=== PATIENT | male | born 1960 | race Caucasian/White ===

== ENCOUNTER 2016-10-29 21:45 | Emergency (ER) | payer BC ==
[2016-10-29 21:52] VITALS: BP 131/89
[2016-10-29] MEDS ORDERED: Naproxen TAB* 250 MG PO ONE (22:00)
[2016-10-29] MEDS ORDERED: Sulfamethox/Trimethoprim DS 800/160* TAB PO ONE (22:00)
--- NOTE | 2016-10-29 22:09 | UC ---
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 handed hx of MRSA - History of Current Complaint Chief Complaint: UCUpperExtremity Stated Complaint: RIGHT ELBOW Time Seen by Provider: 10/29/16 21:53 Hx Obtained From: Patient Mechanism of Injury: no know trauma Onset/Duration: Hours Severity Initially: Mild Severity Currently: Severe Pain Intensity: 9 Pain Scale Used: 0-10 Numeric Location Of Pain: Is Discrete @ - right olecranon Character: Aching Alleviating Factor(s): Rest Associated Signs And Symptoms: Positive: Swelling, Redness - Allergies/Home Medications Allergies/Adverse Reactions: Allergies Allergy/AdvReac Type Severity Reaction Status Date / Time No Known Allergies Allergy Verified 10/29/16 21:52 Home Medications: Home Medications Omeprazole CAP* [Prilosec CAP* 20 MG] 20 mg PO DAILY 10/29/16 [History Confirmed 10/29/16] PMH/Surg Hx/FS Hx/Imm Hx Previously Healthy: Yes - hx MRSA - Surgical History Surgical History: Yes Surgery Procedure, Year, and Place: TWO FINGERS ON RIGHT HAND SEVERED TENDONS AND REPAIRED. LEFT LEG CUT MUSCLE REPAIR. Spinal tap 10/27, loss of left eye vision - Social History Alcohol Use: Daily Substance Use Type: None Smoking Status (MU): Never Smoked Tobacco Type: Cigarettes Have You Smoked in the Last Year: No When Did the Patient Quit Smoking/Using Tobacco: 25 yrs ago Review of Systems Constitutional: Negative Skin: Negative Eyes: Negative ENT: Negative Respiratory: Negative Cardiovascular: Negative Gastrointestinal: Negative Genitourinary: Negative Motor: Negative Neurovascular: Negative Musculoskeletal: Arthralgia, Edema Neurological: Negative Psychological: Negative All Other Systems Reviewed And Are Negative: Yes Physical Exam Triage Information Reviewed: Yes Appearance: Well-Appearing, No Pain Distress, Well-Nourished Vital Signs: Initial Vital Signs Temp 98.4 F 10/29/16 21:47 Pulse 89 10/29/16 21:47 Resp 17 10/29/16 21:47 BP 131/89 10/29/16 21:47 Pulse Ox 97 10/29/16 21:47 Vital Signs Reviewed: Yes ENT: Negative: Hearing grossly normal, Nasal congestion, Nasal drainage, Trismus , Muffled/hoarse voice Neck: Positive: Supple, Nontender Respiratory: Positive: Lungs clear, Normal breath sounds, No respiratory distress Cardiovascular: Positive: RRR, No Murmur Musculoskeletal: Positive: Edema @ - olecranon, Other: - see image Neurological: Positive: Alert Psychological Exam: Normal Skin Exam: Other - see image Elbow Pain Course/Dx - Differential Dx/Diagnosis Provider Diagnoses: right olecranon (?septic) Discharge - Discharge Plan Condition: Stable Disposition: HOME Prescriptions: Naproxen Sodium [Naproxen Sodium 500 MG TAB] 500 mg PO BID PRN #30 tab PRN Reason: Pain Sulfamethox/Trimethoprim DS* [Bactrim DS 800/160 TAB*] 1 tab PO BID #14 tab Patient Education Materials: Elbow Bursitis (ED) Forms: *Work Release Referrals: Linus Ortez MD [Medical Doctor] - 1 Day Images Front/Back of Body, Lg ([place]): 1 - tender/swollen/red over olecranon. not fluctuant. scab near olecranon
== END 2016-10-29 22:09 | disposition home or self-care (01) ==
LOC: UCCORT 21:45
DX: M70.21 Olecranon bursitis, right elbow (principal); Y93.9 Activity, unspecified; Z86.14 Personal history of Methicillin resistant Staphylococcus aureus infection
CPT/HCPCS: 99212; A9270-GY; G0463

== ENCOUNTER 2016-12-20 06:34 | Day surgery (SDC) | payer BC ==
[~2016-12-20 06:34] MED LIST: Buffered Lidocaine 0.9% SYRIN* 5 ML/SYR SYRINGE INTRADERM ONE
[2016-12-20] MEDS ORDERED: ceFAZolin 2 GM PREMIX (*) 50 ML BAG (BBraun bag) IVPB ONE (06:40)
[2016-12-20] MEDS ORDERED: Bupivacaine 0.25% EPI 200,000* 30 ML SDV ONE (07:23)
[2016-12-20] MEDS ORDERED: Bupivacaine 0.25% SDV* 30 ML ONE (07:23)
[2016-12-20] MEDS ORDERED: Midazolam* 1 MG/ML 2 ML VIAL (2 MG) ONE ×2 (07:28→08:04)
[2016-12-20] MEDS ORDERED: fentaNYL* 50 MCG/ML 2 ML VIAL (100 MCG VIAL) ONE (07:28)
[2016-12-20] MEDS ORDERED: Famotidine IV* 10 MG/ML 2 ML (20 mg) ONE (07:36)
[2016-12-20] MEDS ORDERED: Gelfoam 12-7 ADSORBABL SPONGE* 1 EA SPONGE ONE (07:53)
[2016-12-20] MEDS ORDERED: Ketorolac INJ* 30 MG/ML 1 ML VIAL ONE (08:04)
[2016-12-20] MEDS ORDERED: Propofol* 10 MG/ML 20 ML BTL IV PUSH ONE ×2 (08:04→08:39)
[2016-12-20] MEDS ORDERED: Dexamethasone IV* 4 MG/ML 1 ML (4 MG) ONE (08:04)
[2016-12-20] MEDS ORDERED: Lidocaine 2% PF * 5 ML VIAL ONE (08:04)
[2016-12-20] MEDS ORDERED: Labetalol IV* 5 MG/ML 20 ML VIAL ONE (08:38)
[2016-12-20] MEDS ORDERED: HYDROmorphone* 1 MG/ML 1 ML SYR ONE (08:48)
[2016-12-20] MEDS ORDERED: Ondansetron INJ* 2 MG/ML VIAL IV PRN (08:57)
[2016-12-20] MEDS ORDERED: HYDROcodone/ACETAMIN 5-325 MG* 1 TAB PO PRN (08:57)
[2016-12-20] MEDS ORDERED: DiMENhydriNATE IV* 50 MG/ML VIAL IV PUSH PRN (08:57)
[2016-12-20] MEDS ORDERED: PROCHLORPERAZINE INJ 5 MG/ML 2 ML VIAL IV PRN (08:57)
[2016-12-20] MEDS ORDERED: fentaNYL* 50 MCG/ML 2 ML VIAL (100 MCG VIAL) IV PRN (08:57)
[2016-12-20 11:19] VITALS: BP 158/87
--- NOTE | 2016-12-24 13:00 | OP ---
OPERATIVE REPORT: DATE OF OPERATION: 12/20/16 DATE OF : 64 SURGEON: Nabil Edmonds MD PATIENT SAFETY ATTENDANT: EULALIO Cunha An supply assistant was needed for the entirety of the procedure to aid in positioning of the patient, posi tioning of the arm during the surgery and retraction. ANESTHESIOLOGIST: Dr. Silverman. ANESTHESIA: General. PRE-OP DIAGNOSES: 1. Right elbow olecranon bursitis. 2. Right ulnar nerve compression due to cubital tunnel. POST-OP DIAGNOSES: 1. Right elbow olecranon bursitis. 2. Right ulnar nerve compression due to cubital tunnel. PROCEDURES PERFORMED: 1. Right elbow olecranon bursectomy. 2. In situ decompression, right ulnar nerve (cubital tunnel release). INDICATIONS: Asad had significant right elbow olecranon bursitis that was treated initially with Bactrim by my partner, Dr. Ortez, due to concerns for septic olecranon bursitis. It has resolved and he had been left with a more firm collection in the area that is quite painful. He also has a h istory of zone 2 flexor tendon lacerations that were previously repaired and now he has significant flexor tendon adhesions limiting the most of the ring and small fingers. He also has shoulder pain in that arm. I talked to him about excising the bursa, especially given the concern for prior infec tion. He has also told me that he was having pretty significant intermittent numbness and tingling in the small and ring fingers. This was happening pretty much daily. I told them that since we kristie l be in the area and we will be right in the vicinity of the ulnar nerve, that we will plan to decom press the nerve at that time as well. ESTIMATED BLOOD LOSS: 10 mL. COMPLICATIONS: None. FINDINGS: Firm, chronically inflamed olecranon bursa was excised. The right ulnar nerve did show s ignificant flattening and an area of compression right underneath Blackmon's ligament. There was no instability of the ulnar nerve. PROCEDURE: Asad was seen in the preoperative holding area. The correct side, site, and procedu re were identified. We came back to the operating room where anesthesia was induced. He was placed in lateral decubitus position with the arm over a bolster. The arm was prepped and draped in the u sual fashion. A formal timeout was performed. We began by exsanguinating the arm with the Esmarch and the tourniquet was inflated to 250 mmHg. I then made a posteromedial incision over the elbow sufficiently so as to be able to excise the bursa and decompress the nerve. The bursa was from the dermis. I maintained full-thickness ski n flaps while carefully excising the bursa until I excised the entirety of it proximally and distall y, right off the periosteum distally and the triceps fascia proximally. Excision was completed unti l no bursal tissue remained. This was then passed off en bloc as a specimen. I then irrigated out the wound and turned my attention to the ulnar nerve. I began by exposing the nerve just proximal to Blackmon's ligament on the anterior border of the tric eps. I then continued to release proximally, releasing the fascia and a bit of the medial intermusc ular septum. An appendiceal retractor was placed and this allowed for decompression of the nerve u nder direct visualization all the way past the arcade of [place]. I then came distally and releas ed Lbackmon's ligament. Right underneath the Blackmon's ligament, the nerve was very flattened and ki nked and had the appearance of being chronically compressed there. I then continued distally and rel eased the superficial FCU fascia. The two heads of the FCU were split and then a very prominent sub fascial layer was released in its entirety. I then flexed and extended the arm. The ulnar nerve di d not subluxate. I therefore irrigated out the wound. The subcutaneous tissue was reapproximated w ith 3-0 Polysorb sutures. Skin was closed with 3-0 nylon suture. The operative area was infiltrated with 0.25% plain Marcaine. The wound was dressed with Xeroform, 4x4's, and ABD. Then a long arm s plint with the elbow in 30 degrees of flexion was applied. Tourniquet was deflated during the place ment of dressings. The hand pinked up immediately. He was then woken up and taken to the recovery room in stable condition. [id number]/[facility] #: [id number]
== END 2016-12-20 11:36 | disposition home or self-care (01) ==
LOC: OREAST 06:34
PROVIDERS: ATTEND Orthopaedic Surgery Hand Surgery
DX: M70.21 Olecranon bursitis, right elbow (principal); G56.21 Lesion of ulnar nerve, right upper limb; Z87.891 Personal history of nicotine dependence
CPT/HCPCS: 88304; A9270-GY; J0690; J1100; J1170; J1885; J2250; J2704; J3010

== ENCOUNTER → 2017-03-14 10:59 | Day surgery (SDC) | payer BC ==
[~2017-03-14 10:59] MED LIST changes: -Buffered Lidocaine 0.9% SYRIN* 5 ML/SYR SYRINGE INTRADERM ONE; +Buffered Lidocaine 0.9% SYRIN* 5 ML/SYR SYRINGE ONE; +Lidocaine 1% INJ* 10 MG/ML 30 ML SDV ONE; +ceFAZolin 2 GM PREMIX (*) 0 GM/0 ML BAG IVPB ONE
[2017-03-14 11:37] VITALS: BP 115/69
--- NOTE | 2017-03-15 15:24 | OP ---
OPERATIVE REPORT: DATE OF OPERATION: 03/14/17 DATE OF : 64 SURGEON: Nabil Edmonds MD. CORPORATE FITNESS PROGRAM COORDINATOR: None. ANESTHESIOLOGIST: None. ANESTHESIA: Local only with 1% lidocaine. PRE-OP DIAGNOSES: Right posterior elbow small subcutaneous abscess and new onset cellulitis. POST-OP DIAGNOSES: Right posterior elbow small subcutaneous abscess and new onset cellulitis. OPERATIVE PROCEDURE: Incision and drainage of right posterior elbow small subcutaneous abscess. INDICATIONS: Asad was seen for a different scheduled tenolysis surgery. He unfortunately develo ped an infection in the right posterior elbow. There is a small subcutaneous abscess. I told them I thought we should drain it. EBL: 5 mL. COMPLICATIONS: None. FINDINGS: As expected. DESCRIPTION OF PROCEDURE: Asad was seen and preoperatively prior to a different scheduled tenoly sis surgery. He had developed for the last day or two, after a fall on some wedge shell rock, poste rior elbow infection. This morning it was more painful, red, and warm. I had seen him. I told him that unfortunately we need to cancel the surgery, but also that given that he had a small subcutane ous abscess, I thought we had do a small I and D to help the healing along. We went ahead and clean ed the posterior elbow with some ChloraPrep. I then over the area of concern made a 1 cm longitudin al incision broke up any septations in the subcutaneous tissue with the culture swabs. Everything l ooked good. So, I went ahead and sent the cultures off to the lab. We irrigated things out and ari ssed the wound with some 4 x 4's and an Kayode bandage. He tolerated this very well. [id number]/[facility] #: [id number]
== END | disposition home or self-care (01) ==
LOC: OR 10:59
PROVIDERS: ATTEND Orthopaedic Surgery Hand Surgery
DX: L02.413 Cutaneous abscess of right upper limb (principal); L03.113 Cellulitis of right upper limb; I10 Essential (primary) hypertension; K21.9 Gastro-esophageal reflux disease without esophagitis; Z87.891 Personal history of nicotine dependence; M67.843 Other specified disorders of tendon, right hand; S66.10 Unspecified injury of flexor muscle, fascia and tendon of other and unspecified finger at wrist and hand level; X58.XXXS Exposure to other specified factors, sequela; Y92.9 Unspecified place or not applicable
CPT/HCPCS: 87070; 87073; 87205; J0690; J2001

== ENCOUNTER 2017-04-18 12:36 | Day surgery (SDC) | payer BC ==
[2017-04-18] MEDS ORDERED: ceFAZolin 2 GM PREMIX (*) 2 GM/50 ML BAG IVPB ONE (13:25)
[2017-04-18] MEDS ORDERED: Lidocaine 2% W/EPI 1:100,000* 20 ML MDV ONE (13:48)
[2017-04-18] MEDS ORDERED: Sodium Bicarbonate 8.4% IV* 50 ML VIAL ONE (13:48)
[2017-04-18] MEDS ORDERED: Bupivacaine 0.25% SDV* 30 ML ONE ×2 (15:41→19:45)
[2017-04-18] MEDS ORDERED: Lidocaine 1% MPF wEPI 200,000* 30 ML SDV ONE (16:38)
[2017-04-18 20:00] VITALS: BP 130/67
[2017-04-18] MEDS ORDERED: Ibuprofen TAB* 600 MG ONE (20:02)
[2017-04-18] MEDS ORDERED: HYDROcodone/ACETAMIN 5-325 MG* 1 TAB ONE (20:02)
--- NOTE | 2017-04-29 17:44 | OP ---
OPERATIVE REPORT: DATE OF OPERATION: 04/18/17 DATE OF : 64 SURGEON: Nabil Edmonds MD CRACKER DOUGH MIXER: EULALIO Trent ANESTHESIOLOGIST: None. ANESTHESIA: Local only with 1% lidocaine with epinephrine and bicarbonate. PRE-OP DIAGNOSIS: Extensive flexor tendon adhesions left ring and small fingers involving the hand a nd distal forearm area. POST-OP DIAGNOSIS: Extensive flexor tendon adhesions left ring and small fingers involving the hand and distal forearm area. OPERATIVE PROCEDURE: Left ring and small finger flexor tendon tenolysis involving both the palm and fingers, as well as the forearm and wrist area of both fingers. INDICATIONS: Asad had the surgery done over a year ago elsewhere. He went on to develop extensiv e flexor tendon adhesions. He has been keeping the fingers loose and supple. He has required some a dditional surgery by me a few months ago, but now he returns to address the fingers. He understands there is a risk of flexor tendon rupture, need for two-stage flexor tendon reconstruction and additio nal surgery. ESTIMATED BLOOD LOSS: 15 mL. COMPLICATIONS: None. FINDINGS: There were extensive tendon adhesions involving the fingers, palm and even the distal fore arm area. DESCRIPTION OF PROCEDURE: Asad was seen in the preoperative holding area. The correct site, side , and procedure were identified. We had a time-out and then I anesthetized the area with 1% lidocain e with epinephrine and bicarbonate. Short time later, we came back to the operating room where the a rm was prepped and draped down in the usual fashion. A time-out was performed. I began by first opening his prior incision overlying the small finger. This was opened down on to t he palm. There was a dense amount of scar tissue. The A2 roland was preserved to the extent possibl e, as was the A4 roland. I went ahead and performed extensive tenolysis with the Meals tenolysis kni ves and a [place] blade. The tendon was extensively adhered to the bone on the undersurface as well a s to the roland system. I released it out along the course of the tendon. I came back up into the p patricia and the tendon was stuck to the metacarpal bone. I went ahead and released all of this all and t ook it back up towards the carpal tunnel. Once the tendon was completely loosened up, I tried to make a fist and certainly flexed more, but not completely. I then reopened the incision overlying the ring finger and in similar fashion, I performed a tenolysi s preserving the A2 and A4 pulleys all the way to the tip of the finger down into the palm and up tow ards the carpal tunnel. It was adherent throughout the course of the tendon. At this point, I had h im flex and make a fist again and there was improved motion, but it was not complete. I finally came up on the other side of the carpal tunnel and I reopened his distal forearm incision. Dissection was carried down. The tendons were freed up and lysed. There was quite a bit of scar ti ssue there as well. This was extending down into the carpal tunnel, so I went ahead and opened the c arpal tunnel. I performed the tenolysis there. Once I had the tenolysis completely performed, I had been having him to make a fist multiple times throughout the course of this to see when we had adequ ate release. Once I released the tendons in the carpal tunnel, I had him make a fist and finally, th ere was a pop and then he had full flexion of the small finger. The ring finger had much improved, b ut still about a 1 cm lag down to the palm flexion, but significantly improved. Unfortunately, kevan g that final bit of obtaining motion, he had ruptured the A2 pulleys of the small finger. I went ahead and harvested the palmaris longus tendon. I came up in the area of the A2 roland for th e small finger and I wrapped this circumferentially around the bone, but deep to the extensor tendon and around the flexor tendon 3 times. Once I had it nicely wrapped, I went ahead and set appropriate tension and secured the transfer with multiple 4-0 Ethibond [id number] sutures. Once the pulle y reconstruction was complete, I had him flex and extend the finger multiple times. He had absolutely full motion of the small finger. He had much improved, but not full motion of the ring finger. We could straighten out the fingers completely. We went ahead and irrigated out the wounds copiously. S kin was closed with 4-0 nylon interrupted sutures. The wounds were dressed with Xeroform, 4x4's, wesley rile Webril, and an Kayode bandage. He was then taken to the recovery room in stable condition. I had used tourniquet intermittently throughout the procedure. POSTOPERATIVE PLAN: I am going to have Asad see the therapist in just a couple of days, we have a rranged all this. They will remove all the dressings and begin immediate motion. He will follow up with me in a week or 2. [id number]/[facility] #: [id number]
== END 2017-04-19 20:19 | disposition home or self-care (01) ==
LOC: OREAST 12:36
PROVIDERS: ATTEND Orthopaedic Surgery Hand Surgery
DX: M65.842 Other synovitis and tenosynovitis, left hand (principal); M65.832 Other synovitis and tenosynovitis, left forearm; Z87.891 Personal history of nicotine dependence; M75.41 Impingement syndrome of right shoulder; S66.317A Strain of extensor muscle, fascia and tendon of left little finger at wrist and hand level, initial encounter; X50.0XXA Overexertion from strenuous movement or load, initial encounter; Y92.234 Operating room of hospital as the place of occurrence of the external cause
CPT/HCPCS: A9270-GY; J0690; J2001

== ENCOUNTER 2018-02-02 17:13 | Emergency (ER) | payer BC ==
[2018-02-02 17:40] VITALS: BP 135/83
--- NOTE | 2018-02-02 18:37 | UC ---
Skin Complaint HPI - HPI Summary HPI Summary: C/O right leg cellulitis, mostly improved with 7 days of cephalexin, but started to get worse again 2 days ago. - History of Current Complaint Chief Complaint: UCSkin Time Seen by Provider: 02/02/18 18:27 Stated Complaint: RIGHT LEG SKIN CONCERN - RECHECK Hx Obtained From: Patient Onset/Duration: Gradual Onset, Worse Since - last 3 days Skin Exposure Onset/Duration: Weeks Ago - 2 Onset Severity: Severe Current Severity: Moderate Pain Intensity: 4 Location: Discrete - right anterolateral quezada Character: Swelling, Redness, Painful Aggravating Factor(s): Touch Alleviating Factor(s): Nothing Associated Signs & Symptoms: Negative: Fever, Chills Similar Episode/Dx as: Cellulitis - Allergy/Home Medications Allergies/Adverse Reactions: Allergies Allergy/AdvReac Type Severity Reaction Status Date / Time No Known Allergies Allergy Verified 02/02/18 17:40 Review of Systems Constitutional: Fatigue Skin: Other - redness with swelling right anterior lower leg Is Patient Immunocompromised?: No All Other Systems Reviewed And Are Negative: Yes PMH/Surg Hx/FS Hx/Imm Hx Previously Healthy: Yes - Surgical History Surgical History: Yes Surgery Procedure, Year, and Place: TWO FINGERS ON RIGHT HAND SEVERED TENDONS AND REPAIRED, 2016, [facility]. LEFT LEG CUT MUSCLE REPAIR, 2016, [facility]. Spinal tap 10/27, for visual problems, less vsion left eye. 12/2016 -Rt ELBOW - OLECRANON BURSAECTOMY & Rt ULNAR DECOMPRESSION - Family History Known Family History: Positive: Cardiac Disease - father, Diabetes - mother has prediabetes, diet controlled - Social History Occupation: Employed Full-time Lives: With Family Alcohol Use: Daily Alcohol Amount: 3-4 beers daily Substance Use Type: None Smoking Status (MU): Former Smoker Type: Cigarettes Amount Used/How Often: pack a day for7 yrears Have You Smoked in the Last Year: No When Did the Patient Quit Smoking/Using Tobacco: 30 years ago Physical Exam Triage Information Reviewed: Yes Appearance: No Pain Distress, Ill-Appearing - mild, Obese Vital Signs: Initial Vital Signs Temp 99.4 F 02/02/18 17:36 Pulse 72 02/02/18 17:36 Resp 16 02/02/18 17:36 BP 135/83 02/02/18 17:36 Pulse Ox 95 02/02/18 17:36 Vital Signs Reviewed: Yes Eyes: Positive: Conjunctiva Clear Neck exam: Normal Respiratory Exam: Normal Cardiovascular Exam: Normal Musculoskeletal Exam: Normal Musculoskeletal: Positive: Edema @ - right pretibial 3+ pitting edema. Left pretibial pitting 2+ Neurological Exam: Normal Psychological Exam: Normal Skin: Positive: Other - erythema with induration right anterolateral lower ext. with 4.1x1.0 cm ulcer/ wound. Course/Dx - Differential Diagnoses - Skin Complaint Differential Diagnoses: Abscess, Cellulitis, Impetigo - Diagnoses Provider Diagnoses: Cellulitis right lower extremity. Ulcer venous right lower leg Discharge - Sign-Out/Discharge Documenting (check all that apply): Patient Departure All imaging exams completed and their final reports reviewed: No Studies - Discharge Plan Condition: Stable Disposition: HOME Prescriptions: Cephalexin CAP* [Keflex 500 CAP*] 500 mg PO QID #40 cap Mupirocin 2% OINT* [Bactroban 2 % Oint*] 1 applic TOPICAL BID #1 tube Patient Education Materials: Cellulitis (ED), Cephalexin (By mouth), Acute Wound Care (ED), Leg Edema (ED) Referrals: Fely Harris PA [Primary Care Provider] - Additional Instructions: Warm packs to the area will help get rid of the infection faster. Use the aj wrap every morning to keep the swelling down. Avoid salt in the diet. - Billing Disposition and Condition Condition: STABLE Disposition: Home
[2018-02-02] MEDS ORDERED: Cephalexin CAP* 500 MG PO ONE ×2 (18:50→19:09)
== END 2018-02-02 19:15 | disposition home or self-care (01) ==
LOC: UCCORT 17:13
DX: L03.115 Cellulitis of right lower limb (principal); Z87.891 Personal history of nicotine dependence; L97.919 Non-pressure chronic ulcer of unspecified part of right lower leg with unspecified severity
CPT/HCPCS: 99212; A9270-GY; G0463

== ENCOUNTER 2018-03-30 07:49 | Emergency (ER) | payer BC ==
[2018-03-30 08:17] VITALS: BP 145/91
--- NOTE | 2018-03-30 08:32 | UC ---
General HPI - HPI Summary HPI Summary: seen on 01/19/18 after dropped a 75# sheet metal on R leg 4 days prior. dx cellulitis and tx with keflex. return 02/02/18 for a 2 day hx of recurrent cellulitis to same site. dx cellulitis and venous ulcer. tx keflex x 10 days. returns today 03/30/18 because 4 days ago a scab fell off the site and today, the site is foul, slightly red and warm. it was better until now. no fever, chills, hx DM. + Hx MRSA years ago. last saw his pcp 2 weeks ago who felt site looked good. - History of Current Complaint Chief Complaint: UCSkin Stated Complaint: RECHECK - RIGHT LEG COMPLAINT Time Seen by Provider: 03/30/18 08:15 Hx Obtained From: Patient, Family/Plate Glass Installer Onset/Duration: Gradual Onset Timing: Constant Pain Intensity: 0 Associated Signs & Symptoms: Negative: Fever - Allergy/Home Medications Allergies/Adverse Reactions: Allergies Allergy/AdvReac Type Severity Reaction Status Date / Time No Known Allergies Allergy Verified 03/30/18 08:03 PMH/Surg Hx/FS Hx/Imm Hx - Additional Past Medical History Additional PMH: KIVALINA Cardiovascular History: Hypertension GI/ History: Gastroesophageal Reflux - Surgical History Surgical History: Yes Surgery Procedure, Year, and Place: TWO FINGERS ON RIGHT HAND SEVERED TENDONS AND REPAIRED, 2016, [facility]. LEFT LEG CUT MUSCLE REPAIR, 2016, [facility]. Spinal tap 10/27, for visual problems, less vsion left eye. 12/2016 -Rt ELBOW - OLECRANON BURSAECTOMY & Rt ULNAR DECOMPRESSION - Family History Known Family History: Positive: None, Cardiac Disease - father, Diabetes - mother has prediabetes, diet controlled - Social History Lives: With Family Alcohol Use: Daily Alcohol Amount: 3-4 beers daily Substance Use Type: None Smoking Status (MU): Former Smoker Type: Cigarettes Amount Used/How Often: pack a day for7 yrears Have You Smoked in the Last Year: No When Did the Patient Quit Smoking/Using Tobacco: 30 years ago - Immunization History Hx Tetanus, Diphtheria Vaccination: Yes Vaccination Up to Date: Yes Review of Systems All Other Systems Reviewed And Are Negative: Yes Constitutional: Positive: Negative Skin: Positive: Negative Eyes: Positive: Negative ENT: Positive: Negative Respiratory: Positive: Negative Cardiovascular: Positive: Negative Gastrointestinal: Positive: Negative Genitourinary: Positive: Negative Motor: Positive: Negative Neurovascular: Positive: Negative Musculoskeletal: Positive: Negative Neurological: Positive: Negative Psychological: Positive: Negative Is Patient Immunocompromised?: No Physical Exam Triage Information Reviewed: Yes Appearance: Well-Appearing Vital Signs: Initial Vital Signs Temp 98.3 F 03/30/18 08:07 Pulse 64 03/30/18 08:07 Resp 18 03/30/18 08:07 BP 145/91 03/30/18 08:07 Pulse Ox 98 03/30/18 08:07 Vital Signs Reviewed: Yes Eyes: Positive: Conjunctiva Clear ENT: Positive: Pharynx normal, TMs normal. Negative: Nasal congestion, Nasal drainage Neck: Positive: Supple, Nontender, No Lymphadenopathy Respiratory: Positive: Lungs clear, Normal breath sounds Cardiovascular: Positive: RRR, No Murmur Abdomen Description: Positive: Nontender, No Organomegaly, Soft, Other: - No inguinal adenopathy Bowel Sounds: Positive: Present Musculoskeletal: Positive: ROM Intact Neurological: Positive: Alert Psychological: Positive: Age Appropriate Behavior Skin Exam: Normal, Other - Miriam size full thickness wound with foul odor to R lower-lateral leg with erythema, warmth, swelling and tenderness. No streaking or inguinal adenopathy. Necrotic tissue in center of wound as well. Tender over quezada adjacent to the wound as well. RLE has full s/v/m function. Diagnostics - Laboratory Diagnostic Studies Completed/Ordered: FS [id number]. wound culture pending. - Radiology No standard instances Radiology Interpretation Completed By: Radiologist - RLE=. Soft tissue inflammatory change with superficial ulceration versus subcutaneous emphysema at the lateral aspect as noted. #. No radiographic findings of osteomyelitis. If there is persistent clinical concern for osteomyelitis consider follow-up MRI or in setting of contraindication to MRI 3 phase bone scan for further assessment. Course/Dx - Course Course Of Treatment: Procedure: tissue plucked from surface of wound with sterile forcep. wound culture obtained. site cleansed with betadine then irrigated with 500ml sterile NaCl and covered with sterile gauze. pt tolerated well. post xray, Bacitracin applied to site for moisture the covered with non adhering sterile gauze. 300mg po clindamycin given here pre wound culture. [facility] called, report given to Cecille. I advised of need to r/o osteomyelitis - Differential Dx - Multi-Symptom Provider Diagnoses: Deep wound RLE with cellulitis. r/o osteomyelitis Discharge - Sign-Out/Discharge Documenting (check all that apply): Patient Departure All imaging exams completed and their final reports reviewed: Yes - Discharge Plan Condition: Stable Disposition: TRANS HIGHER LVL OF CARE FAC Referrals: Fely Harris PA [Primary Care Provider] - Additional Instructions: LEAVE HERE AND GO DIRECTLY TO THE [facility] ER DISCUSSED - Billing Disposition and Condition Condition: STABLE Disposition: Trans Higher Lvl of Care Fac
[2018-03-30] MEDS ORDERED: Silver Sulfadiazine 1%* 20 GM TOPICAL ONE (08:39)
[2018-03-30] MEDS ORDERED: Clindamycin CAP* 150 MG PO ONE (08:40)
== END 2018-03-30 09:46 | disposition short-term general hospital (02) ==
LOC: UCCORT 07:49
DX: Z51.89 Encounter for other specified aftercare (principal); S81.801A Unspecified open wound, right lower leg, initial encounter; L03.115 Cellulitis of right lower limb; B95.61 Methicillin susceptible Staphylococcus aureus infection as the cause of diseases classified elsewhere; B96.5 Pseudomonas (aeruginosa) (mallei) (pseudomallei) as the cause of diseases classified elsewhere; W20.8XXA Other cause of strike by thrown, projected or falling object, initial encounter; Y92.9 Unspecified place or not applicable; F17.210 Nicotine dependence, cigarettes, uncomplicated
CPT/HCPCS: 11000; 87070; 87077; 87186; 87205; 99212; A9270-GY; G0463

== ENCOUNTER 2018-03-30 11:14 | Observation (INO) | payer BC ==
[2018-03-30] MEDS ORDERED: Vancomycin(*) 1,000 MG in NS 0.9% 250 ML* 250 ML IVPB ONE (11:50)
[2018-03-30 11:56] LABS: ABS Basophils 0.1 10^3/ul (0-0.2); ABS Eosinophils 0.3 10^3/ul (0-0.6); ABS Lymphocytes 2.2 10^3/ul (1.0-4.8); ABS Monocytes 0.6 10^3/ul (0-0.8); ABS Neutrophils 4.5 10^3/ul (1.5-7.7); ABS Nucleated RBC 0 10^3/ul; Eosinophil % 4.6 % (0-6); Hematocrit 44 % (42-52); Hemoglobin 14.9 g/dl (14.0-18.0); INR 0.88 (0.77-1.02); Lymphocyte % 28.4 % (25-47); Mean Corpuscular HGB Conc 34 g/dl (31-36); Mean Corpuscular Hemoglobin 30 pg (27-31); Mean Corpuscular Volume 89 fL (80-94); Mean Platelet Volume 9.9 fL (7.4-10.4); Nucleated Red Blood Cells % 0; Platelet Count 163 10^3/ul (150-450); Red Blood Count 4.98 10^6/ul (4.00-5.40); Red Cell Distribution Width 13 % (10.5-15); White Blood Count 7.6 10^3/ul (3.5-10.8)
[2018-03-30 12:07] LABS: EGFR Non-African American 82.3 (>60)
--- NOTE | 2018-03-30 12:26 | ED ---
Lower Extremity - HPI Summary HPI Summary: A 57 y/o male presents to ED c/o right leg infection. As per triage, "right leg infection, was at urgent care; started in Jan. ongoing issue multiple doses ABX ; "they think it has bone involvement now, after imaging"". According to the patient, it started in January where it was originally a scratch. He was placed on an antibiotic regime, however, exhibited no improvement. He was then placed on another antibiotic for 14 days which his scratched healed, but a scab was present which came out this AM. Patient is unsure of the antibiotic names. He denies any fevers, chills, numbness or weakness. PMHx of no DM, but has HTN. Also history of Mrsa (7 years ago). - History of Current Complaint Chief Complaint: EDExtremityLower Stated Complaint: RIGHT LEG PROBLEM Time Seen by Provider: 03/30/18 11:21 Hx Obtained From: Patient Mechanism Of Injury: Other - Scabb came out. Onset/Duration: Still Present Severity Currently: None Pain Intensity: 0 Pain Scale Used: 0-10 Numeric Timing: Constant Location: Other - Lower Extremity Associated Signs And Symptoms: Positive: Negative Aggravating Factor(s): Nothing Alleviating Factor(s): Nothing Able to Bear Weight: Yes - Allergies/Home Medications Allergies/Adverse Reactions: Allergies Allergy/AdvReac Type Severity Reaction Status Date / Time No Known Allergies Allergy Verified 03/30/18 11:18 PMH/Surg Hx/FS Hx/Imm Hx Endocrine/Hematology History: Denies: Hx Diabetes Cardiovascular History: Reports: Hx Hypertension Denies: Hx Pacemaker/ICD, Other Cardiovascular Problems/Disorders Respiratory History: Denies: Other Respiratory Problems/Disorders GI History: Reports: Hx Gastroesophageal Reflux Disease - on meds Denies: Other GI Disorders History: Denies: Hx Renal Disease Musculoskeletal History: Reports: Hx Bursitis - right elbow Denies: Other Musculoskeletal History Sensory History: Reports: Hx Hearing Aid - ebonie Denies: Hx Contacts or Glasses Opthamlomology History: Denies: Hx Contacts or Glasses Neurological History: Denies: Other Neuro Impairments/Disorders Psychiatric History: Denies: Hx Panic Disorder - Surgical History Surgery Procedure, Year, and Place: TWO FINGERS ON RIGHT HAND SEVERED TENDONS AND REPAIRED, 2016, [facility]. LEFT LEG CUT MUSCLE REPAIR, 2016, [facility]. Spinal tap 10/27, for visual problems, less vsion left eye. 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 Denies: History Other Infectious Disease, Traveled Outside the [place] in Last 30 Days - Family History Known Family History: Positive: Cardiac Disease - father, Diabetes - mother has prediabetes, diet controlled - Social History Alcohol Use: Daily Alcohol Amount: 3-4 beers daily Substance Use Type: Reports: None Smoking Status (MU): Former Smoker Type: Cigarettes Amount Used/How Often: pack a day for7 yrears Have You Smoked in the Last Year: No Review of Systems Negative: Fever, Chills Positive: Other - POSITIVE: infection of lower extremity Negative: Weakness, Numbness All Other Systems Reviewed And Are Negative: Yes Physical Exam - Summary Physical Exam Summary: VITAL SIGNS: Reviewed. GENERAL: Patient is a well-developed and nourished male who is lying comfortable in the stretcher. Patient is not in any acute respiratory distress. HEAD AND FACE: No signs of trauma. No ecchymosis, hematomas or skull depressions. No sinus tenderness. EYES: PERRLA, EOMI x 2, No injected conjunctiva, no nystagmus. EARS: Hearing grossly intact. Ear canals and tympanic membranes are within normal limits. MOUTH: Oropharynx within normal limits. NECK: Supple, trachea is midline, no adenopathy, no JVD, no carotid bruit, no c- spine tenderness, neck with full ROM. CHEST: Symmetric, no tenderness at palpation LUNGS: Clear to auscultation bilaterally. No wheezing or crackles. CVS: Regular rate and rhythm, S1 and S2 present, no murmurs or gallops appreciated. ABDOMEN: Soft, non-tender. No signs of distention. No rebound no guarding, and no masses palpated. Bowel sounds are normal. EXTREMITIES: FROM in all major joints, no edema, no cyanosis or clubbing. Right lower extremity wound with some serosanguinous discharge. NEURO: Alert and oriented x 3. No acute neurological deficits. Speech is normal and follows commands. SKIN: Dry and warm Triage Information Reviewed: Yes Vital Signs On Initial Exam: Initial Vitals Temp Pulse Resp BP Pulse Ox 98.5 F 65 16 148/96 99 03/30/18 11:15 18 11:15 03/30/18 11:15 18 11:15 03/30/18 11:15 Vital Signs Reviewed: Yes Diagnostics - Vital Signs Vital Signs Temp Pulse Resp BP Pulse Ox 03/30/18 11:15 98.5 F 65 16 148/96 99 - Laboratory Lab Results: Lab Results 03/30/1818 03/30/18 Range/Units 11:43 11:43 11:43 WBC 7.6 (3.5-10.8) 10^3/ul RBC 4.98 (4.00-5.40) 10^6/ul Hgb 14.9 (14.0-18.0) g/dl Hct 44 (42-52) % MCV 89 (80-94) fL MCH 30 (27-31) pg MCHC 34 (31-36) g/dl RDW 13 (10.5-15) % Plt Count 163 (150-450) 10^3/ul MPV 9.9 (7.4-10.4) fL Neut % (Auto) 58.9 (38-83) % Lymph % (Auto) 28.4 (25-47) % Wilkes % (Auto) 7.4 H (0-7) % Eos % (Auto) 4.6 (0-6) % Baso % (Auto) 0.7 (0-2) % Absolute Neuts (auto) 4.5 (1.5-7.7) 10^3/ul Absolute Lymphs (auto) 2.2 (1.0-4.8) 10^3/ul Absolute Monos (auto) 0.6 (0-0.8) 10^3/ul Absolute Eos (auto) 0.3 (0-0.6) 10^3/ul Absolute Basos (auto) 0.1 (0-0.2) 10^3/ul Absolute Nucleated RBC 0 10^3/ul Nucleated RBC % 0 ESR Pending INR (Anticoag Therapy) 0.88 (0.77-1.02) Sodium 137 (135-145) mmol/L Potassium 4.0 (3.5-5.0) mmol/L Chloride 104 (101-111) mmol/L Carbon Dioxide 27 (22-32) mmol/L Anion Gap 6 (2-11) mmol/L BUN 16 (6-24) mg/dL Creatinine 0.95 (0.67-1.17) mg/dL Est GFR ( Amer) 99.6 (>60) Est GFR (Non-Af Amer) 82.3 (>60) BUN/Creatinine Ratio 16.8 (8-20) Glucose 122 H (70-100) mg/dL Lactic Acid (0.5-2.0) mmol/L Calcium 9.2 (8.6-10.3) mg/dL Total Bilirubin 0.40 (0.2-1.0) mg/dL AST 14 (13-39) U/L ALT 20 (7-52) U/L Alkaline Phosphatase 66 (34-104) U/L Total Creatine Kinase 145 (10-223) U/L Troponin I 0.00 (<0.04) ng/mL C-Reactive Protein 3.54 (<8.01) mg/L Total Protein 7.0 (6.4-8.9) g/dL Albumin 4.2 (3.2-5.2) g/dL Globulin 2.8 (2-4) g/dL Albumin/Globulin Ratio 1.5 (1-3) 18/18 Range/Units 11:43 WBC (3.5-10.8) 10^3/ul RBC (4.00-5.40) 10^6/ul Hgb (14.0-18.0) g/dl Hct (42-52) % MCV (80-94) fL MCH (27-31) pg MCHC (31-36) g/dl RDW (10.5-15) % Plt Count (150-450) 10^3/ul MPV (7.4-10.4) fL Neut % (Auto) (38-83) % Lymph % (Auto) (25-47) % Wilkes % (Auto) (0-7) % Eos % (Auto) (0-6) % Baso % (Auto) (0-2) % Absolute Neuts (auto) (1.5-7.7) 10^3/ul Absolute Lymphs (auto) (1.0-4.8) 10^3/ul Absolute Monos (auto) (0-0.8) 10^3/ul Absolute Eos (auto) (0-0.6) 10^3/ul Absolute Basos (auto) (0-0.2) 10^3/ul Absolute Nucleated RBC 10^3/ul Nucleated RBC % ESR INR (Anticoag Therapy) (0.77-1.02) Sodium (135-145) mmol/L Potassium (3.5-5.0) mmol/L Chloride (101-111) mmol/L Carbon Dioxide (22-32) mmol/L Anion Gap (2-11) mmol/L BUN (6-24) mg/dL Creatinine (0.67-1.17) mg/dL Est GFR ( Amer) (>60) Est GFR (Non-Af Amer) (>60) BUN/Creatinine Ratio (8-20) Glucose (70-100) mg/dL Lactic Acid 1.5 (0.5-2.0) mmol/L Calcium (8.6-10.3) mg/dL Total Bilirubin (0.2-1.0) mg/dL AST (13-39) U/L ALT (7-52) U/L Alkaline Phosphatase (34-104) U/L Total Creatine Kinase (10-223) U/L Troponin I (<0.04) ng/mL C-Reactive Protein (<8.01) mg/L Total Protein (6.4-8.9) g/dL Albumin (3.2-5.2) g/dL Globulin (2-4) g/dL Albumin/Globulin Ratio (1-3) Result Diagrams: 03/30/18 11:43 03/30/18 11:43 Lab Statement: Any lab studies that have been ordered have been reviewed, and results considered in the medical decision making process. - Radiology CXR Radiology Interpretation Completed By: Radiologist - No evidence for acute intrathoracic disease. ED PHYSICIAN REVIEWED THIS RADIOLOGY REPORT. Lower Extremity Course/Dx - Course Assessment/Plan: A 57 y/o male presents to ED c/o right leg infection. As per triage, "right leg infection, was at urgent care; started in Jan. ongoing issue multiple doses ABX; "they think it has bone involvement now, after imaging "". According to the patient, it started in January where it was originally a scratch. He was placed on an antibiotic regime, however, exhibited no improvement. He was then placed on another antibiotic for 14 days which his scratched healed, but a scab was present which came out this AM. Patient is unsure of the antibiotic names. He denies any fevers, chills, numbness or weakness. PMHx of no DM, but has HTN. Also history of Mrsa (7 years ago). Blood tests without any significant abnormality, except for glucose is 122, CRP of 3.54. A chest x-ray impression: No evidence for acute intrathoracic disease. Right lower extremity x-ray impression: Soft tissue inflammatory changes with superficial laceration versus subcutaneous emphysema at the lateral aspect noted. No radiographic findings of question myelitis. If any persisting clinical concern for questionable osteomyelitis consider follow-up MRI or in setting of contraindications for an MRI face bone scan for further assessment. Initially the patient was given IV fluids and he was placed and vancomycin. The culture results are positive for MRSA. I discuss my physical exam, findings and test results with Dr. Palma from the hospitalist services and he agrees to admit patient to his services. Patient is hemodynamically stable alert and oriented x 3. - Diagnoses Differential Diagnosis/HQI/PQRI: Positive: Bursitis, Cellulitis, Osteomyelitis Provider Diagnoses: Wound cellulitis - Physician Notifications Discussed Care Of Patient With: Zachary Palma Time Discussed With Above Provider: 14:06 Instructed by Provider To: Other - Accepts patient for admission. Discharge - Sign-Out/Discharge Documenting (check all that apply): Patient Departure - ADMIT, Sign-Out Patient - Minerva Signing out patient TO: Zachary Palma Receiving patient FROM: Yoel Myrick - Discharge Plan Condition: Stable Disposition: ADMITTED TO [facility] - Billing Disposition and Condition Condition: STABLE Disposition: Admitted to [facility] - Attestation Statements Document Initiated by Elsaibe: Yes Documenting Scribe: Oz Brasher Provider For Whom Elsaibtejas is Documenting (Include Credential): Yoel Myrick MD Scribe Attestation: Oz Smith, patoed for Yoel Myrick MD on 03/30/18 at 1821. Scribe Documentation Reviewed: Yes Provider Attestation: The documentation as recorded by the scribeOz accurately reflects the service I personally performed and the decisions made by me, Yoel Myrick MD
[2018-03-30 14:17] LABS: Urine Appearance Clear; Urine Blood Negative (Negative); Urine Color Straw; Urine Ketones Negative (Negative); Urine Protein Negative (Negative); Urine Specific Gravity 1.006 (1.010-1.030); Urine Urobilinogen Negative (Negative)
[2018-03-30] MEDS ORDERED: Ondansetron INJ* 2 MG/ML VIAL IV PRN (14:47)
[2018-03-30] MEDS ORDERED: Acetaminophen TAB* 325 MG PO PRN (14:47)
[2018-03-30] MEDS ORDERED: Vancomycin per Pharmacy* NOTE FOLLOW UP SCH (15:00)
[2018-03-30] MEDS: Vancomycin(*) 1,500 MG in NS 0.9% 250 ML* 250 ML IVPB SCH (17:28)
--- NOTE | 2018-03-30 20:58 | HP ---
CC: EULALIO Cote * [facility] MEDICINE HISTORY AND PHYSICAL: DATE OF ADMISSION: 03/30/18 PRIMARY CARE PROVIDER: EULALIO Cote ATTENDING PHYSICIAN: Zachary Palma MD * (dictation provided by Radha Marquez NP) CHIEF COMPLAINT: Ulcer to right lower leg. HISTORY OF PRESENT ILLNESS: Mr. Viera is a 57-year-old male with a past medical history of hypertension and recent treatment in January for cellulitis to his right lower extremity, who presents today to the hospital with concerns for a non- healing ulcer to his right lower extremity. The patient states that he initially had erythema and was treated with 2 separate courses of antibiotics in January. He believes that he completed his last antibiotic at the beginning of February. He felt that the area had completely healed but on Saturday, he noted in the shower that there was a scab that came off and that there was an ulceration to the right calf. He has not felt systemically ill. He has had no fever. No chills. No nausea, vomiting, diarrhea, abdominal pain. No chest pain or shortness of breath. Today, he again was in the shower and noted that the scab came off and there was some purulent drainage and therefore, he went to [facility]. [facility], there was concern that perhaps Mr. Viera had osteomyelitis and therefore, he was transitioned to the ER for further evaluation. Here he had a lower extremity x-ray that showed no evidence of osteomyelitis and only soft tissue inflammatory change. His labs are unremarkable. His ESR is 16, CRP is 3.54. His vitals are stable. PAST MEDICAL HISTORY: Hypertension. ALLERGIES: No known drug allergies. FAMILY HISTORY: Reviewed and noncontributory. SOCIAL HISTORY: No report of alcohol use. The patient is a former smoker, quit about 3 years ago. No report of drug use. He states his mother would be his healthcare proxy. REVIEW OF SYSTEMS: A 14-point review of systems was completed with Mr. Viera and all those not mentioned above were negative. PHYSICAL EXAMINATION GENERAL: Mr. Viera is lying in the bed. He is in no acute distress. He is alert, oriented x3. Moves all extremities equally. There is no facial asymmetry or focal weakness. VITAL SIGNS: Temperature 98.5, pulse rate 65, respiratory rate 16, O2 saturation 99% on room air, blood pressure 148/96. HEENT: Extraocular movements are intact. LUNGS: Clear to auscultation bilaterally with no accessory muscle use and good aeration. HEART: S1, S2. No murmur, rub, or gallop and regular. ABDOMEN: Soft, nontender with bowel sounds positive x4. EXTREMITIES: No cyanosis or edema. SKIN: The patient has an approximately dime sized ulceration to the lateral aspect of the mid calf level. There is no drainage at this point, but family states that it was quite purulent prior to being cleaned today. It is probably about 0.5 cm deep or less. DIAGNOSTIC STUDIES/LAB DATA: WBC 7.6, hemoglobin 14.9, hematocrit 44, platelet count 163,000. ESR 16. INR 0.88. Sodium 137, potassium 4.0, chloride 104, serum bicarbonate 27, BUN 16, creatinine 0.95, glucose 122, lactic acid 1.5. Procalcitonin less than 0.1. The patient had a culture of the wound which has already shown positivity for MRSA. ASSESSMENT/[;AM: Mr. Viera is a 57-year-old male with a past medical history of recent treatment back in January and February for cellulitis to his right lower extremity who presents today with an ulceration which he has noticed since Saturday with purulent drainage and now found to have MRSA with concern for possible osteomyelitis. Our plans are for observation in the hospital for the followin. Right lower extremity ulceration: This is positive for MRSA. Plan to treat with vancomycin for 24 hours and then consider just switching over to an appropriate oral medication. The patient has a negative x-ray, but there is continued suspicion for possible osteomyelitis given the location and the depth of the wound and the persistence of the wound. Plan for MRI tomorrow. If the MRI is negative, I anticipate the patient could be discharged to home. He shows no evidence for sepsis. 2. Hypertension. Blood pressure is 148/96. Plan to continue lisinopril/ hydrochlorothiazide. 3. DVT prophylaxis. Heparin subcu. 4. Code status is full code. TIME SPENT: Approximately 60 minutes were spent on the admission of this patient, more than half the time spent with the patient at the bedside reviewing the events leading up to this hospitalization, performing the physical examination, and reviewing my plan of care. RADHA MARQUEZ STEAM ENGINEER [id number]/[facility] #: [id number] [facility]
[2018-03-30] MEDS: Heparin VIAL(*) 5000 UNITS/ML VIAL (FIVE THOUSAND) SUBCUT SCH (21:44)
[2018-03-31] MEDS: Heparin VIAL(*) 5000 UNITS/ML VIAL (FIVE THOUSAND) SUBCUT SCH ×2 (06:03→14:56)
[2018-03-31] MEDS: Vancomycin(*) 1,500 MG in NS 0.9% 250 ML* 250 ML IVPB SCH (06:03)
[2018-03-31] MEDS ORDERED: Omeprazole CAP* 20 MG PO SCH (09:00)
[2018-03-31] MEDS ORDERED: Lisinopril TAB* 10 MG PO SCH (09:00)
[2018-03-31] MEDS ORDERED: Hydrochlorothiazide TAB* 25 MG PO SCH (09:00)
[2018-03-31 11:34] VITALS: BP 122/76
[2018-03-31] MEDS ORDERED: Collagenase 250 MG/GM OINT* 30 GM TOPICAL SCH (14:30)
[2018-04-01] MEDS ORDERED: Vancomycin Trough Check NOTE FOLLOW UP ONE (18:00)
--- NOTE | 2018-04-01 19:27 | DS ---
CC: EULALIO Cote * DISCHARGE SUMMARY: DATE OF ADMISSION: 03/30/18 DATE OF DISCHARGE: 03/31/18 PROVIDER: Sophia Andrade NP ATTENDING PHYSICIAN: Armando Garcia MD * (dictated by Sophia Andrade NP) PRIMARY CARE PROVIDER: EULALIO oCte PRIMARY DIAGNOSIS: Right lower extremity ulceration, positive for methicillin- resistant Staphylococcus aureus. SECONDARY DIAGNOSIS: Hypertension. STUDIES COMPLETED WHILE IN THE HOSPITAL: 1. He had an MRI of the right lower extremity. Radiologist's impression: No evidence of bone marrow edema to suggest osteomyelitis. 2. He had a chest x-ray on 03/30/18. Radiologist's impression: No evidence of acute intrathoracic disease. DISCHARGE MEDICATIONS: 1. Doxycycline 100 mg p.o. b.i.d. x7 days. Continued home medications: 1. Omeprazole 20 mg p.o. daily. 2. Lisinopril 10 mg p.o. daily. 3. Ibuprofen 600 mg q. 8 hours as needed for pain. 4. Hydrochlorothiazide 25 mg p.o. daily. 5. Santyl ointment apply topically daily to ulceration. 6. Acetaminophen 650 mg p.o. q. 6 hours as needed for pain. HISTORY OF PRESENT ILLNESS AND HOSPITAL COURSE: Mr. Viera is a 57-year-old gentleman with a past medical history significant for hypertension and recent treatment in January for cellulitis to right lower extremity who presented to the hospital on 03/30/18 with a nonhealing ulcer to the right lower extremity. The patient states that initially he had erythema and was treated with 2 separate courses of antibiotics since January, which he believes he completed the last dose in the beginning of February. He felt that the area was completely healed, but on Saturday, he noted in the shower that the scab came off and there was an ulceration to his right calf. He denies any fever or chills. Denies any nausea, vomiting or diarrhea. Denies any abdominal pain. He denied any shortness of breath. He does report that when the scab came off, he had purulent drainage, and therefore [facility]. At [facility], there was concern that the patient may have osteomyelitis, therefore, he was transitioned to the emergency room for further evaluation. His ESR was 16 and his CRP was 3.54, vital signs were all stable. While in the hospital, he had an MRI of the right lower extremity, which showed no osteomyelitis. He did have culture of the wound, which was positive for MRSA and MSSA. The patient also reports that he has a history of MRSA in the past. He was treated with 2 courses of Keflex for treatment of his cellulitis in January. Given the fact that he currently has MRSA in the wound, I will place him on doxycycline 100 mg p.o. b.i.d. I will have the patient follow up with Dr. Figueroa from Infectious Disease in 3 to 7 days. He was also seen in consultation by Wound Care, who recommended Santyl ointment to the wound, Vaseline gauze, and 4 x 4 to dressing change daily. The patient has remained afebrile during this hospitalization. He has no complaints at this time. He is stable for discharge home. At this time, Mr. Viera will be discharged back home. Vital signs are as follows: Blood pressure 122/76, temperature was 98.0, heart rate 59, respirations 16, O2 saturation 97% on room air. DISCHARGE PLAN: Mr. Viera will be discharged back home. Activity as tolerated. He should continue on a low sodium, heart healthy diet. 1. Right lower leg ulceration. He should continue on doxycycline 100 mg p.o. b.i.d. for 7 days. He should follow up with Dr. Figueroa in 4 to 7 days for reevaluation of MRSA wound. Again, he had an MRI, it was negative for osteomyelitis. He should continue with Santyl dressing changes, Santyl ointment and Vaseline gauze and 4 x 4 dressing change daily. 2. Hypertension. He should continue his previous home medications as previously prescribed. 3. Follow up. The patient should follow up with his primary care provider in 4 to 7 days for a wound check. He should follow up with Dr. Figueroa from Infectious Disease in 4 to 7 days for further management of his MRSA wound and antibiotic needs. The patient was instructed to return to the emergency room for any increased redness, drainage, pain, swelling, fever, chills, nausea, vomiting or diarrhea, chest pain, or shortness of breath. This is a summarization of his hospitalization. If further details are needed, please see the entire medical record. TIME SPENT: Time spent on this discharge was approximately 60 minutes, greater than half of that time was spent with the patient discussing discharge plans and instructions. CONDITION ON DISCHARGE: Stable. SOPHIA ANDRADE NP [id number]/[facility] #: [id number] [facility]
== END 2018-03-31 16:55 | disposition home or self-care (01) ==
LOC: ED 11:14 → MED 14:43
PROVIDERS: ADMIT Student in an Organized Health Care Education/Training Program; ATTEND Internal Medicine
DX: A49.02 Methicillin resistant Staphylococcus aureus infection, unspecified site (principal); L97.919 Non-pressure chronic ulcer of unspecified part of right lower leg with unspecified severity; I10 Essential (primary) hypertension; Z87.891 Personal history of nicotine dependence
CPT/HCPCS: 36415; 71045; 80053; 81003; 82550; 83605; 84145; 84484; 85025; 85610; 85652; 86140; 87040; 87070; 87205; 87640; 87641; 96365; 96366; 96372; 96375; 96376; 99283; A9270-GY; G0378; J1644; J3370

== ENCOUNTER 2018-08-31 12:27 | Emergency (ER) | payer BC ==
[2018-08-31] MEDS ORDERED: Fluorescein Sodium TOPICAL* 1 MG TEST STRIP OPHTHALMIC ONE (13:15)
[2018-08-31] MEDS ORDERED: Tetracaine 0.5% OPTH.SOL 4 ML* 1 DROP BTL ONE (13:19)
[2018-08-31] MEDS ORDERED: Sulfacetamide 10 % OPTH.SOL LEFT EYE ONE (13:22)
--- NOTE | 2018-08-31 13:28 | ED ---
Throat Pain/Nasal Congestion - HPI Summary HPI Summary: This patient is a 58 year old M presenting to [facility] and referred by [facility] accompanied by family with a chief complaint of L eye pain that began on 2018. The patient rates the pain 10/10 in severity. Symptoms aggravated by nothing. Symptoms alleviated by nothing. Patient reports blurred vision in L eye (chronic), erythema in L eye, photophobia, and headache. Pt denies any fever , chills, sore throat, CP, SOB, cough, abdominal pain, N/V, dysuria, hematuria, myalgia, edema, rash, or dizziness. 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 - History of Current Complaint Chief Complaint: EDEyeProblem Time Seen by Provider: 08/31/18 13:14 Hx Obtained From: Patient Onset/Duration: Sudden Onset, Lasting Days, Still Present Severity: Severe - Allergies/Home Medications Allergies/Adverse Reactions: Allergies Allergy/AdvReac Type Severity Reaction Status Date / Time No Known Allergies Allergy Verified 03/30/18 11:18 PMH/Surg Hx/FS Hx/Imm Hx Previously Healthy: No Endocrine/Hematology History: Denies: Hx Diabetes Cardiovascular History: Reports: Hx Hypertension Denies: Hx Pacemaker/ICD, Other Cardiovascular Problems/Disorders Respiratory History: Denies: Other Respiratory Problems/Disorders GI History: Reports: Hx Gastroesophageal Reflux Disease - on meds Denies: Other GI Disorders History: Denies: Hx Renal Disease Musculoskeletal History: Reports: Hx Bursitis - right elbow Denies: Other Musculoskeletal History Sensory History: Reports: Hx Hearing Aid - ebonie Denies: Hx Contacts or Glasses Opthamlomology History: Denies: Hx Contacts or Glasses Neurological History: Denies: Other Neuro Impairments/Disorders Psychiatric History: Denies: Hx Panic Disorder - Surgical History Surgery Procedure, Year, and Place: TWO FINGERS ON RIGHT HAND SEVERED TENDONS AND REPAIRED, 2016, [facility]. LEFT LEG CUT MUSCLE REPAIR, 2016, [facility]. Spinal tap 10/27, for visual problems, less vsion left eye. 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 Denies: History Other Infectious Disease, Traveled Outside the [place] in Last 30 Days - Family History Known Family History: Positive: Cardiac Disease - father, Diabetes - mother has prediabetes, diet controlled - Social History Occupation: Employed Full-time Lives: Alone Alcohol Use: Daily Alcohol Amount: 3-4 beers daily Hx Substance Use: No Substance Use Type: Reports: None Hx Tobacco Use: Yes Smoking Status (MU): Former Smoker Type: Cigarettes Amount Used/How Often: pack a day for7 yrears Have You Smoked in the Last Year: No Review of Systems Negative: Fever, Chills Positive: Photophobia, Blurred Vision, Erythema Negative: Sore Throat Negative: Chest Pain Negative: Shortness Of Breath, Cough Negative: Abdominal Pain, Vomiting, Nausea Negative: dysuria, hematuria Negative: Myalgia, Edema Negative: Rash Neurological: Other - Negative dizziness Positive: Headache All Other Systems Reviewed And Are Negative: Yes Physical Exam - Summary Physical Exam Summary: Constitutional: Well-developed, Well-nourished, Alert. (-) Distressed Skin: Warm, Dry HENT: Normocephalic; Atraumatic Eyes: Fluorescence uptake around a foreign body at the 6 oclock position just below the left pupil Neck: Musculoskeletal ROM normal neck. (-) JVD, (-) Stridor, (-) Tracheal deviation Cardio: Rhythm regular, rate normal, Heart sounds normal; Intact distal pulses; The pedal pulses are 2+ and symmetric. Radial pulses are 2+ and symmetric. (-) Murmur Pulmonary/Chest wall: Effort normal. (-) Respiratory distress, (-) Wheezes, (-) Rales Abd: Soft, (-) tenderness, (-) Distension, (-) Guarding, (-) Rebound Musculoskeletal: (-) Edema Lymph: (-) Cervical adenopathy Neuro: Alert, Oriented x3 Psych: Mood and affect Normal Triage Information Reviewed: Yes Vital Signs On Initial Exam: Initial Vitals Temp Pulse Resp BP Pulse Ox 98 F 66 20 132/76 94 08/31/18 12:39 08/31/18 12:39 08/31/18 12:39 08/31/18 12:39 08/31/18 12:39 Vital Signs Reviewed: Yes Procedures - Procedure Summary Procedure Summary: EYE PROCEDURE He has a rust ring at the 6 oclock position. Purpilish discoloration at the 3 o clock position over the sclera. I did attempt a gentle cotton swab removal; however, I was unable to remove. It may be deep to the conjunctiva. - Eye Procedure Left Alcaine Drops Administered: Yes Eye FB Removal: removal w/ cotton swab Antibiotic Ointment/Drps Admin: left eye Diagnostics - Vital Signs Vital Signs Temp Pulse Resp BP Pulse Ox 08/31/18 12:39 98 F 66 20 132/76 94 - Laboratory Lab Statement: Any lab studies that have been ordered have been reviewed, and results considered in the medical decision making process. EENT Course/Dx - Course Course Of Treatment: This patient is a 58 year old M presenting to [facility] and referred by [facility] accompanied by family with a chief complaint of L eye pain that began on 08/29/2018. Physical Exam Findings: Fluorescence uptake around a foreign body at the 6 oclock position just below the left pupil. In the ED course the patient was given tetracaine, sulfacetamide, and Flu-Elizabeth. Patient will be discharged with prescription for Nord[place] and Sulamyd and with follow up from Dr. Acosta. The patient is agreeable with this plan. He has a rust ring at the 6 oclock position. Purpilish discoloration at the 3 oclock position over the sclera. I did attempt a gentle cotton swab removal; however, I was unable to remove. It may be deep to the conjunctiva. - Diagnoses Provider Diagnoses: Intraocular foreign body, Corneal rust ring Discharge - Sign-Out/Discharge Documenting (check all that apply): Patient Departure - Discharged home Patient Received Moderate/Deep Sedation with Procedure: No - Discharge Plan Condition: Stable Disposition: HOME Prescriptions: HYDROcodone/ACETAMIN 5-325 MG* [Nord[place] 5-325 TAB*] 1 tab PO Q6H PRN #10 tab MDD 4 PRN Reason: Pain Scale 6-10 HYDROcodone/ACETAMIN 5-325 MG* [[place] 5-325 TAB*] 1 tab PO Q6H PRN #10 tab MDD 4 PRN Reason: Pain - Moderate To Severe Sulfacetamide 10 % OPTH.JOSEPH* [Sulamyd 10% Opth*] 1 drop LEFT EYE Q4H #1 btl Patient Education Materials: Eye Foreign Body (ED) Referrals: Fely Harris PA [Primary Care Provider] - 2 Days Torito Acosta MD [Medical Doctor] - 09/01/18 Additional Instructions: USE A COLD WASHCLOTH ON EYE FOR PAIN RELIEF RETURN TO THE EMERGENCY DEPARTMENT FOR NEW OR WORSENING SYMPTOMS - Billing Disposition and Condition Condition: STABLE Disposition: Home - Attestation Statements Document Initiated by Elsaibe: Yes Documenting Scribe: Jena Kate Provider For Whom Scribe is Documenting (Include Credential): Dr. Gustavo Villalobos MD Scribe Attestation: IJena, scribed for Dr. Gustavo Villalobos MD on 09/04/18 at 1357. Scribe Documentation Reviewed: Yes Provider Attestation: The documentation as recorded by the Jena davila accurately reflects the service I personally performed and the decisions made by me, Dr. Gustavo Villalobos MD Status of Scribe Document: Viewed
[2018-08-31] MEDS ORDERED: Tetracaine 0.5% OPTH.SOL 4 ML* 1 DROP BTL LEFT EYE SCH (13:30)
[2018-08-31 14:15] VITALS: BP 126/104
== END 2018-08-31 14:14 | disposition home or self-care (01) ==
LOC: ED 12:27
DX: S05.52XA Penetrating wound with foreign body of left eyeball, initial encounter (principal); X58.XXXA Exposure to other specified factors, initial encounter; I10 Essential (primary) hypertension; K21.9 Gastro-esophageal reflux disease without esophagitis; M71.9 Bursopathy, unspecified; Z79.899 Other long term (current) drug therapy; Z87.891 Personal history of nicotine dependence
CPT/HCPCS: 99282; A9270-GY

== ENCOUNTER 2018-10-15 10:08 | Emergency (ER) | payer BC ==
[2018-10-15 10:30] VITALS: BP 115/81
[2018-10-15] MEDS ORDERED: Tetan/Diph/Pertus SYR(Tdap)* 0.5 ML SYR(BOOSTRIX) use SYR IM ONE (10:41)
--- NOTE | 2018-10-15 10:49 | UC ---
General HPI - HPI Summary HPI Summary: pt got a 3/4" sliver in his R thumb 2 weeks ago and pulled it out. about 1 week later the thumb started to swelling, hurt and is not a little red and warm. last tetanus is not known. - History of Current Complaint Chief Complaint: UCSkin Stated Complaint: RT THUMB CONCERN Time Seen by Provider: 10/15/18 10:28 Hx Obtained From: Patient Onset/Duration: Gradual Onset Timing: Constant Pain Intensity: 8 Associated Signs & Symptoms: Negative: Fever - Allergy/Home Medications Allergies/Adverse Reactions: Allergies Allergy/AdvReac Type Severity Reaction Status Date / Time No Known Allergies Allergy Verified 10/15/18 10:21 Home Medications: Home Medications Lisinopril/HCTZ 02/21.5(NF) [Zestoretic 02/21.(NF)] 1 tab PO DAILY 10/15/18 [ History Confirmed 10/15/18] PMH/Surg Hx/FS Hx/Imm Hx Cardiovascular History: Hypertension GI/ History: Gastroesophageal Reflux - Surgical History Surgical History: Yes Surgery Procedure, Year, and Place: TWO FINGERS ON RIGHT HAND SEVERED TENDONS AND REPAIRED, 2016, [facility]. LEFT LEG CUT MUSCLE REPAIR, 2016, [facility]. Spinal tap 10/27, for visual problems, less vsion left eye. 12/2016 -Rt EL[facility]OW - OLECRANON BURSAECTOMY & Rt ULNAR DECOMPRESSION - Family History Known Family History: Positive: Cardiac Disease - father, Diabetes - mother has prediabetes, diet controlled - Social History Alcohol Use: Daily Alcohol Amount: 3-4 beers daily Substance Use Type: None Smoking Status (MU): Former Smoker Type: Cigarettes Amount Used/How Often: pack a day for7 yrears Have You Smoked in the Last Year: No When Did the Patient Quit Smoking/Using Tobacco: 30 YEARS AGO - Immunization History Most Recent Tetanus Shot: PT BELIEVES IN THE LAST 5 YEARS BUT NOT POSITIVE Hx Tetanus, Diphtheria Vaccination: No Vaccination Up to Date: Yes Review of Systems All Other Systems Reviewed And Are Negative: No Constitutional: Negative: Fever, Chills Skin: Positive: Rash - R thumb is pink Musculoskeletal: Positive: Arthralgia - IP joint R thumb, Decreased ROM - R thumb IP joint, Edema - R thumb Physical Exam Triage Information Reviewed: Yes Appearance: Well-Appearing Vital Signs: Initial Vital Signs Temp 96.9 F 10/15/18 10:24 Pulse 93 10/15/18 10:24 Resp 17 10/15/18 10:24 BP 115/81 10/15/18 10:24 Pulse Ox 95 10/15/18 10:24 Vital Signs Reviewed: Yes Eyes: Positive: Conjunctiva Clear Respiratory: Positive: No respiratory distress Cardiovascular: Positive: RRR Musculoskeletal: Positive: Other: - R thumb is swollen and tender with mild erythema and warmth but no streaking. flexion is limited at the IP joint due to pain and swelling. rest of hand is unremarkable. Neurological: Positive: Alert Psychological: Positive: Age Appropriate Behavior Skin Exam: Normal Diagnostics - Radiology No standard instances Radiology Interpretation Completed By: Radiologist - IMPRESSION: SOFT TISSUE SWELLING. NO ACUTE OSSEOUS INJURY. IF SYMPTOMS PERSIST, RECOMMEND REPEAT IMAGING. Course/Dx - Course Course Of Treatment: case d/w dr abdalla. she will see pt at 1:30 today - Diagnoses Provider Diagnosis: Infected puncture wound of hand Discharge - Sign-Out/Discharge Documenting (check all that apply): Patient Departure All imaging exams completed and their final reports reviewed: Yes - Discharge Plan Condition: Stable Disposition: HOME Patient Education Materials: Puncture Wound (ED) Referrals: Nanda Abdalla MD [Medical Doctor] - Additional Instructions: FOLLOW UP TODAY AT 1:30PM SCHEDULED BY THIS [facility] - Billing Disposition and Condition Condition: STABLE Disposition: Home
== END 2018-10-15 11:30 | disposition home or self-care (01) ==
LOC: UCCORT 10:08
DX: S61.031A Puncture wound without foreign body of right thumb without damage to nail, initial encounter (principal); L08.9 Local infection of the skin and subcutaneous tissue, unspecified; I10 Essential (primary) hypertension; K21.9 Gastro-esophageal reflux disease without esophagitis; Z87.891 Personal history of nicotine dependence; X58.XXXA Exposure to other specified factors, initial encounter
CPT/HCPCS: 90471; 90715; 99211; G0463